=== PATIENT | male | born 1955 | race Caucasian/White ===

== ENCOUNTER 2020-03-24 10:13 | Inpatient (IN) | payer MEDICARE, OTHER ==
[~2020-03-24 10:13] MED LIST: XANAX1 MG PO; ZESTRIL5 MG PO
[2020-03-24 10:44] LABS: BASOPHIL 0.1 % (0-2); EOSINOPHIL 0 % (0-7); HCT 48.5 % (42.0-52.0); HGB 16.2 g/dl (13.2-18.0); LYMPHOCYTE 7.7 % (15-48); MCH 29.3 pg (25.0-31.0); MCHC 33.4 g/dL (32.0-36.0); MCV 87.9 fL (78.0-100.0); MONOCYTE 6.2 % (0-12); MPV 9.6 fL (6.0-9.5); NEUTROPHIL 85.3 % (41-80); NRBC 0; PLT 224 K/uL (150-400); RBC 5.52 M/uL (4.70-6.00)
[2020-03-24 10:45] LABS: WBC 21.2 K/uL (4.0-10.5)
[2020-03-24 10:58] LABS: BILIRUBIN - TOTAL 1.2 mg/dL (0.2-1.0); BUN/CREAT RATIO (CALC) 16.4 RATIO; CREATININE 1.34 mg/dL (0.67-1.17); GLOBULIN (CALCULATION) 3.5 g/dL; POTASSIUM 4.2 mmol/L (3.5-5.1); TOTAL PROTEIN 7.5 g/dL (6.4-8.2)
[2020-03-24 12:46] LABS: BILIRUBIN 1+ mg/dL (NEGATIVE); BLOOD 1+ Ery/uL (NEGATIVE); CLARITY CLEAR (CLEAR); COLOR YELLOW (YELLOW); GLUCOSE (U) NORMAL (NORMAL); LEUKOCYTES NEGATIVE Leu/uL (NEGATIVE); NITRITE NEGATIVE (NEGATIVE); PROTEIN TRACE (LOW) mg/dL (NEGATIVE); SPECIFIC GRAVITY >=1.030 (1.001-1.030); UROBILINOGEN 0.2 mg/dL (0.2-1.0); pH 5.5 (5.0-9.0)
[2020-03-24 12:58] LABS: BACTERIA TRACE
[2020-03-24 12:59] LABS: MUCOUS TRACE; SQUAMOUS EPITHELIAL CELLS RARE
[2020-03-24] MEDS ORDERED: TRAZODONE 100M100 MG PO (13:52)
[2020-03-24 16:41] LABS: BILIRUBIN NEGATIVE (NEGATIVE); BLOOD 1+ Ery/uL (NEGATIVE); COLOR YELLOW (YELLOW); GLUCOSE (U) NORMAL (NORMAL); LEUKOCYTES NEGATIVE Leu/uL (NEGATIVE); NITRITE NEGATIVE (NEGATIVE); PROTEIN TRACE (LOW) mg/dL (NEGATIVE); SPECIFIC GRAVITY >=1.030 (1.001-1.030); UROBILINOGEN 0.2 mg/dL (0.2-1.0)
[2020-03-24 16:43] LABS: CLARITY SLIGHTLY HAZY (CLEAR)
[2020-03-24 16:45] LABS: BACTERIA TRACE
[2020-03-25 05:51] LABS: BASOPHIL 0.1 % (0-2); EOSINOPHIL 0 % (0-7); HGB 13.1 g/dl (13.2-18.0); LYMPHOCYTE 5.8 % (15-48); MCH 28.9 pg (25.0-31.0); MCV 90.5 fL (78.0-100.0); MONOCYTE 4.9 % (0-12); NEUTROPHIL 88.7 % (41-80); NRBC 0; PLT 170 K/uL (150-400); RBC 4.53 M/uL (4.70-6.00); WBC 13.9 K/uL (4.0-10.5)
[2020-03-25 06:09] LABS: ALBUMIN 2.7 g/dL (3.4-5.0); BILIRUBIN - TOTAL 0.7 mg/dL (0.2-1.0); BUN/CREAT RATIO (CALC) 17.2 RATIO; CREATININE 1.34 mg/dL (0.67-1.17); GLOBULIN (CALCULATION) 3.1 g/dL; MAGNESIUM 1.7 mg/dL (1.8-2.4); POTASSIUM 4.3 mmol/L (3.5-5.1); TOTAL PROTEIN 5.8 g/dL (6.4-8.2)
[2020-03-26 06:05] LABS: BASOPHIL 0.1 % (0-2); EOSINOPHIL 0.2 % (0-7); HCT 38.9 % (42.0-52.0); HGB 12.6 g/dl (13.2-18.0); LYMPHOCYTE 8.6 % (15-48); MCH 29.4 pg (25.0-31.0); MCHC 32.4 g/dL (32.0-36.0); MCV 90.7 fL (78.0-100.0); MONOCYTE 6.8 % (0-12); MPV 9.9 fL (6.0-9.5); NEUTROPHIL 83.7 % (41-80); NRBC 0; PLT 175 K/uL (150-400); RBC 4.29 M/uL (4.70-6.00); RDW 13.2 % (11.5-14.0); WBC 10.4 K/uL (4.0-10.5)
[2020-03-26 06:24] LABS: BUN/CREAT RATIO (CALC) 18.5 RATIO; CREATININE 1.35 mg/dL (0.67-1.17); POTASSIUM 4.3 mmol/L (3.5-5.1)
[2020-03-28 06:00] LABS: BASOPHIL 0.5 % (0-2); EOSINOPHIL 7.2 % (0-7); HCT 37.1 % (42.0-52.0); HGB 11.9 g/dl (13.2-18.0); MCHC 32.1 g/dL (32.0-36.0); MCV 90.3 fL (78.0-100.0); MONOCYTE 12.2 % (0-12); MPV 9.5 fL (6.0-9.5); NEUTROPHIL 58.6 % (41-80); NRBC 0; PLT 202 K/uL (150-400); RBC 4.11 M/uL (4.70-6.00); RDW 12.8 % (11.5-14.0); WBC 4.4 K/uL (4.0-10.5)
[2020-03-28 06:17] LABS: BUN/CREAT RATIO (CALC) 13.3 RATIO; CREATININE 1.05 mg/dL (0.67-1.17); POTASSIUM 3.5 mmol/L (3.5-5.1)
[2020-03-29] MEDS ORDERED: PROBIOTIC1 EAC3 PO (10:52)
[2020-03-29] MEDS ORDERED: OXYCODONE-ACET1 EAC1 PO (10:52)
[2020-03-29] MEDS ORDERED: AUGMENTIN 875-1 EACH PO (10:53)
== END 2020-03-29 14:17 | disposition home or self-care (01) | DRG 339 ==
LOC: FER 10:13 → FMS 13:00
PROVIDERS: Emergency Medicine; Internal Medicine; Nurse Practitioner Adult Health; ADMIT Surgery
PROC: 0WJG4ZZ Inspection of Peritoneal Cavity, Percutaneous Endoscopic Approach (ICD-10-PCS; 2020-03-24)
PROC: 0DTJ0ZZ Resection of Appendix, Open Approach (ICD-10-PCS; principal; 2020-03-24 15:01)
DX: K35.32 Acute appendicitis with perforation, localized peritonitis, and gangrene, without abscess (principal); N17.9 Acute kidney failure, unspecified; K56.7 Ileus, unspecified; F41.9 Anxiety disorder, unspecified; G47.00 Insomnia, unspecified; E86.0 Dehydration; Z20.828 Contact with and (suspected) exposure to other viral communicable diseases; Z87.891 Personal history of nicotine dependence; N18.9 Chronic kidney disease, unspecified; B96.20 Unspecified Escherichia coli [E. coli] as the cause of diseases classified elsewhere
CPT/HCPCS: 36415; 80048; 80053; 81001; 83690; 83735; 85025; 87070; 87075; 87077; 87186; 87205; C9113; J1100; J1170; J1650; J1885; J2060; J2250; J2270; J2405; J2543; J2704; J2710; J3010; J3475; J7120; U0002